=== PATIENT | female | born 2000 ===

== ENCOUNTER 2025-02-05 13:02 | Emergency (ER) | payer BC ==
[2025-02-05] MEDS ORDERED: Sodium Chloride 0.9% 10 ML Syringe FLUSH PRN (13:28)
[2025-02-05 14:15] LABS: BASOPHILS ABSOLUTE AUTO 0.02 10^3/uL (0.00-0.10); BASOPHILS PERCENT AUTO 0.2 % (0.0-1.0); EOSINOPHILS ABSOLUTE AUTO 0.17 10^3/uL (0.10-0.30); EOSINOPHILS PERCENT AUTO 1.5 % (1.0-3.0); IMMATURE GRAN ABSOLUTE AUTO 0.02 10^3/uL (0.00-0.04); IMMATURE GRAN PERCENT AUTO 0.2 % (0.0-0.4); LYMPHOCYTES ABSOLUTE AUTO 3.51 10^3/uL (1.00-4.00); LYMPHOCYTES PERCENT AUTO 30.7 % (20.0-40.0); MEAN PLATELET VOLUME 11.0 fL (7.4-10.4); MONOCYTES ABSOLUTE AUTO 0.75 10^3/uL (0.10-0.80); MONOCYTES PERCENT AUTO 6.6 % (2.0-8.0); NEUTROPHILS ABSOLUTE AUTO 6.96 10^3/uL (2.50-7.00); NEUTROPHILS PERCENT AUTO 60.8 % (50.0-70.0); PLATELET COUNT,PLT 175 10^3/uL (150-400); RED BLOOD CELL COUNT 4.15 10^6/uL (3.80-5.50); RED CELL DISTRIBUTION WIDTH 12.4 % (11.5-14.5); WHITE BLOOD CELL COUNT,WBC 11.43 10^3/uL (5.00-10.00)
[2025-02-05 14:26] LABS: ALANINE AMINOTRANSFERASE,ALT 23.0 U/L (14-63); ASPARTATE AMNIOTRANSFERASE,AST 14.0 U/L (15-37); BILIRUBIN TOTAL 0.3 mg/dL (0.2-1.0); BLOOD UREA NITROGEN,BUN 5.0 mg/dL (7-18); CARBON DIOXIDE,CO2 25.5 mmol/L (21.0-32.0); CHLORIDE,CL 106.0 mmol/L (98-107); CREATININE 0.48 mg/dL (0.51-1.17); EST CRCL DRUG DOSING (CG) 157.4 mL/min; GLUCOSE RANDOM 78.0 mg/dL (70-140); POTASSIUM,K 3.5 mmol/L (3.5-5.1); PROTEIN TOTAL,TP 6.4 g/dL (6.4-8.2); SODIUM,NA 140.0 mmol/L (136-145)
[2025-02-05 14:27] LABS: ESTIMATED GFR 136.0 mL/min (>=60)
[2025-02-05 14:28] LABS: APPEARANCE,URINE TURBID (CLEAR); GLUCOSE,URINE NEGATIVE (NEGATIVE); OCCULT BLOOD,URINE NEGATIVE (NEGATIVE)
[2025-02-05 14:29] LABS: EPITHELIAL CELLS,URINE FEW /LPF
== END 2025-02-05 15:10 | disposition home or self-care (01) ==
LOC: KA.ED 13:02
DX: O99.891 Other specified diseases and conditions complicating pregnancy (principal); R55 Syncope and collapse; O23.41 Unspecified infection of urinary tract in pregnancy, first trimester; N39.0 Urinary tract infection, site not specified; O99.281 Endocrine, nutritional and metabolic diseases complicating pregnancy, first trimester; E86.0 Dehydration; Z79.82 Long term (current) use of aspirin; Z79.899 Other long term (current) drug therapy; Z91.018 Allergy to other foods
CPT/HCPCS: 36415; 80053; 81001; 84702; 85025; 87086; 96360; 99284-25; J7030